=== PATIENT | male | born 1995 | race Caucasian/White ===

== ENCOUNTER 2018-06-09 17:41 | Emergency (ER) | payer MEDICAID ==
[2018-06-09] MEDS: KETOROLAC 60 MG INJ IM (19:37)
[2018-06-09] MEDS: ACETAMINOPHEN 500 MG TAB PO (19:37)
[2018-06-09] MEDS: DIAZEPAM 5 MG TAB PO (19:38)
[2018-06-09] MEDS: traMADol 50 MG TAB PO (19:38)
== END 2018-06-09 20:29 | disposition home or self-care (01) ==
LOC: FTE 17:41
DX: S29.012A Strain of muscle and tendon of back wall of thorax, initial encounter (principal); S80.02XA Contusion of left knee, initial encounter; S29.001A Unspecified injury of muscle and tendon of front wall of thorax, initial encounter; V49.49XA Driver injured in collision with other motor vehicles in traffic accident, initial encounter
CPT/HCPCS: 96372; 99284-25